=== PATIENT | male | born 2005 | race Caucasian/White ===

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

== ENCOUNTER → 2024-11-02 | Outpatient (CLI) | payer BC ==
[2024-11-03 11:33] LABS: FREE T4 1.30 NG/DL (0.83-1.43)
[2024-11-03 11:36] LABS: THYROGLOBULIN ANTIBODY 23.0 U/ML (<60.0); THYROID PEROXIDASE ANTIBODY < 28.0 U/ML (<60.0)
== END ==
LOC: M PLALAB 16:32
PROVIDERS: ATTEND Pediatrics
DX: Z83.49 Family history of other endocrine, nutritional and metabolic diseases (principal)